=== PATIENT | female | born 1980 | race Caucasian/White ===

== ENCOUNTER 2018-06-28 15:14 | Emergency (ER) | payer BC, SELFPAY ==
[2018-06-28 15:19] VITALS: BP 119/67; PULSE 84; RESP 15; TEMP 36.8; O2SAT 100; BMI 25.7
--- NOTE | 2018-06-28 16:31 | ED.ABDPAIN ---
HPI - Abdominal Pain <Joselyn Cloud PA-C - Last Filed: 06/28/18 22:17> General Chief Complaint: Abdominal Pain Stated Complaint: Severe pelvic pain, weakness Time Seen by Provider: 06/28/18 16:31 Source: patient Mode of arrival: ambulatory Limitations: no limitations History of Present Illness HPI narrative: This 37-year-old female comes in due to recurrent pelvic pain. She states that she had a stabbing pain in her right ovary Ilana morning. This seemed to get better about 6 hr later, talked to her Ob/ statistician his thought probable ovarian cyst that ruptured. She states that she felt okay yesterday, but today has had recurrent pain again that feels like it is in the ovaries but on both sides today. She states that she did feel okay earlier but pain started again when she was up on her feet for about an hour and a half. Pain seems better lying down and resting. She states she has had slight nausea today with reduced appetite but no vomiting. She took 600 mg of ibuprofen this morning which did not seem to help much. She states that she has some pressure in her low back but does have some chronic back pain, and does not think this is especially bothersome. She does not have flank pain. She states she does not feel any pain in her abdomen. She denies any fever, chills, sweats. She denies any new urinary symptoms, vaginal discharge or STD concerns. She states bowel movements have been normal. She denies any chest pain, dyspnea, new swelling in her legs. She states that she felt some fullness in her right thigh area this morning but that has resolved. Currently no lower extremity pain. She denies recent illnesses or other new symptoms on systems review. Related Data Home Medications Medication Instructions Recorded Confirmed ibuprofen [Advil] 1 dose PO PRN PRN 06/28/18 06/28/18 Allergies Allergy/AdvReac Type Severity Reaction Status Date / Time Penicillins [PENICILLINS] Allergy Mild Verified 06/28/18 17:21 Review of Systems <Joselyn Cloud PA-C - Last Filed: 06/28/18 22:17> Review of Systems All systems reviewed & are unremarkable except as noted in HPI and below Exam <Joselyn Cloud PA-C - Last Filed: 06/28/18 22:17> Narrative Exam Narrative: GENERAL APPEARANCE: Patient resting comfortably on her right side HEENT: PERRL, EOMI, no scleral icterus NECK: Supple LUNGS: Clear to auscultation bilaterally. HEART: Rate and rhythm regular, normal S1 and S2, no S3 or S4. ABDOMEN: Soft, nontender, nondistended, bowel sounds present x 4 quadrants, no masses palpable, no hepatosplenomegaly. no CVAT. She has localized tenderness over the left side of the pelvis and suprapubic area, no right-sided tenderness, no guarding or rebound EXTREMITIES: No edema, no calf tenderness DERMATOLOGIC: No jaundice or exanthem NEUROLOGIC: Alert and oriented with normal speech and coordination Initial Vital Signs Initial Vital Signs: Vital Signs Temperature 98.2 F 06/28/18 15:19 Pulse Rate 84 06/28/18 15:19 Respiratory Rate 15 06/28/18 15:19 Blood Pressure 119/67 06/28/18 15:19 Pulse Oximetry 100 06/28/18 15:19 <Darby Lewis DO - Last Filed: 07/01/18 08:08> Initial Vital Signs Initial Vital Signs: Vital Signs Temperature 98.2 F 06/28/18 15:19 Pulse Rate 84 06/28/18 15:19 Respiratory Rate 15 06/28/18 15:19 Blood Pressure 119/67 06/28/18 15:19 Pulse Oximetry 100 06/28/18 15:19 Course <Joselyn Cloud PA-C - Last Filed: 06/28/18 22:17> Additional Information: Patient had moderate pain at the time of discharge which had improved. She did not feel like she needed further treatment or medication. Advised on what to watch for in terms of need to return and also importance of reassessment preferably tomorrow, and she is agreeable. Orders Ordered: Discontinued Medications Sodium Chloride (Normal Saline 0.9%) 1,000 mls @ 1,000 mls/hr IV BOLUS ONE Stop: 06/28/18 17:54 Last Infusion: 06/28/18 19:15 Dose: 0 mls/hr Admin: 06/28/18 17:21 Dose: 1,000 mls/hr Ketorolac Tromethamine (Toradol) 30 mg IV NOW ONE Stop: 06/28/18 16:55 Last Admin: 06/28/18 17:21 Dose: 30 mg Vital Signs - 8 hr 06/28/18 15:19 06/28/18 18:12 Temperature 98.2 F Pulse Rate 84 95 H Respiratory Rate 15 16 Blood Pressure 119/67 Blood Pressure [Left Arm] 105/64 Pulse Oximetry 100 96 <Darby Lewis DO - Last Filed: 07/01/18 08:08> Orders Ordered: Discontinued Medications Sodium Chloride (Normal Saline 0.9%) 1,000 mls @ 1,000 mls/hr IV BOLUS ONE Stop: 06/28/18 17:54 Last Infusion: 06/28/18 19:15 Dose: 0 mls/hr Admin: 06/28/18 17:21 Dose: 1,000 mls/hr Ketorolac Tromethamine (Toradol) 30 mg IV NOW ONE Stop: 06/28/18 16:55 Last Admin: 06/28/18 17:21 Dose: 30 mg Vital Signs - 8 hr 06/28/18 15:19 06/28/18 18:12 Temperature 98.2 F Pulse Rate 84 95 H Respiratory Rate 15 16 Blood Pressure 119/67 Blood Pressure [Left Arm] 105/64 Pulse Oximetry 100 96 MDM - Abdominal Pain <Joselyn Cloud PA-C - Last Filed: 06/28/18 22:17> Lab Data Attestation: I reviewed the patient's lab results. Result diagrams: 06/28/18 17:10 06/28/18 17:10 Lab Results 06/28/18 06/28/18 Range/Units 17:10 17:10 WBC 8.7 (4.5-11.0) X10^3/uL RBC 4.30 (4.0-5.2) X10^6/uL Hgb 13.5 (12.0-16.0) g/dL Hct 39.3 (36-46) % MCV 91.5 (80-100) fL MCH 31.4 (26-34) PG MCHC 34.3 (30-36) % RDW 13.0 (11.6-14.8) % Plt Count 307 (150-400) X10^3/uL Neut % (Auto) 61.1 (50-75) % Lymph % (Auto) 32.6 (25-40) % [place] % (Auto) 5.4 (3-14) % Eos % (Auto) 0.5 L (2-4) % Baso % (Auto) 0.4 (0-2) % Neut # (Auto) 5300 (4937-8680) /uL Sodium 145 (137-145) mmol/L Potassium 3.5 (3.4-5.1) mmol/L Chloride 106 (98-107) mmol/L Carbon Dioxide 27 (22-32) mmol/L BUN 8 (7-17) mg/dL Creatinine 0.70 (0.52-1.04) mg/dL Estimated GFR > 60.0 (>60) mL/min BUN/Creatinine Ratio 11.4 (6-22) Glucose 88 (70-100) mg/dL Calcium 9.6 (8.4-10.2) mg/dL Total Bilirubin 0.4 (0.2-1.3) mg/dL AST 17 (14-36) IU/L ALT 23 (9-52) IU/L Alkaline Phosphatase 44 (38-126) U/L Total Protein 8.3 H (6.3-8.2) g/dL Albumin 4.7 (3.5-5.0) g/dL Globulin 3.6 (1.7-4.1) g/dL Albumin/Globulin Ratio 1.3 (1.0-2.8) Point of care testing: Point of Care Testing Test Results Negative Urine Dip Bedside Urine Glucose Negative Bedside Urine Bilirubin - Negative Bedside Urine Ketone - Negative Urine Specific [place] 1.010 Bedside Urine Occult Blood - Negative Bedside Urine pH 6.5 Bedside Urine Protein - Negative Bedside Urine Urobilinogen - Negative Bedside Urine Nitrite - Negative Bedside Urine Leukocytes - Negative Esterase Imaging Data pelvis: Radiologist's impression: [place] [address] Ultrasound Report Signed Patient: Tiffany Colbert CMR#: [id number] : 1980Acct:[id number] Age/Sex: 37 / FDate of Service: 06/28/18 Loc: ED Accession Number: [id number] Procedure: US pelvic complete Ordering Provider: Joselyn Cloud P.A-C PROCEDURE: US PELVIC COMPLETE INDICATIONS: pelvic/adenexal pain TECHNIQUE: Real-time scanning was performed of the pelvic organs, with image documentation. Additional endovaginal scanning was necessary due to incomplete visualization of the adnexal and endometrial structures by transabdominal scanning. COMPARISON: None. FINDINGS: Transabdominal scanning: Limited scanning through the kidneys shows no hydronephrosis. No pathologic free abdominal or pelvic fluid. Endovaginal scanning: Uterus: Uterus is normal in size at 7.5 x 4.6 x 5.9 cm. The endometrium measures 5.0 mm in combined thickness. Ovaries: Right adnexa measures 2.7 x 2.7 x 3.3 cm. Left adnexa measures 2.7 x 2.1 x 2.0 cm. Adnexa sonographically normal. IMPRESSION: 1. Uterus sonographically normal. 2. Adnexa sonographically normal. Dictated by: Kathleen Palmer MD, PhD on 06/28/2018 at 18:30 Approved by: Kathleen Palmer MD, PhD on 06/28/2018 at 18:31 <Darby Lewis, - Last Filed: 07/01/18 08:08> Lab Data Lab Results 06/28/18 06/28/18 Range/Units 17:10 17:10 WBC 8.7 (4.5-11.0) X10^3/uL RBC 4.30 (4.0-5.2) X10^6/uL Hgb 13.5 (12.0-16.0) g/dL Hct 39.3 (36-46) % MCV 91.5 (80-100) fL MCH 31.4 (26-34) PG MCHC 34.3 (30-36) % RDW 13.0 (11.6-14.8) % Plt Count 307 (150-400) X10^3/uL Neut % (Auto) 61.1 (50-75) % Lymph % (Auto) 32.6 (25-40) % [place] % (Auto) 5.4 (3-14) % Eos % (Auto) 0.5 L (2-4) % Baso % (Auto) 0.4 (0-2) % Neut # (Auto) 5300 (1235-6415) /uL Sodium 145 (137-145) mmol/L Potassium 3.5 (3.4-5.1) mmol/L Chloride 106 (98-107) mmol/L Carbon Dioxide 27 (22-32) mmol/L BUN 8 (7-17) mg/dL Creatinine 0.70 (0.52-1.04) mg/dL Estimated GFR > 60.0 (>60) mL/min BUN/Creatinine Ratio 11.4 (6-22) Glucose 88 (70-100) mg/dL Calcium 9.6 (8.4-10.2) mg/dL Total Bilirubin 0.4 (0.2-1.3) mg/dL AST 17 (14-36) IU/L ALT 23 (9-52) IU/L Alkaline Phosphatase 44 (38-126) U/L Total Protein 8.3 H (6.3-8.2) g/dL Albumin 4.7 (3.5-5.0) g/dL Globulin 3.6 (1.7-4.1) g/dL Albumin/Globulin Ratio 1.3 (1.0-2.8) Point of care testing: Point of Care Testing Test Results Negative Urine Dip Bedside Urine Glucose Negative Bedside Urine Bilirubin - Negative Bedside Urine Ketone - Negative Urine Specific [place] 1.010 Bedside Urine Occult Blood - Negative Bedside Urine pH 6.5 Bedside Urine Protein - Negative Bedside Urine Urobilinogen - Negative Bedside Urine Nitrite - Negative Bedside Urine Leukocytes - Negative Esterase Discharge Plan Departure Patient Disposition: Home Clinical Impression: Pelvic pain Discharge Date/Time: 06/28/18 19:21 Interventions: ED Discharge Assessment Last Done: 06/28/18 19:18 Instructions: DI for Pelvic Pain Activity Restrictions/Additional Instructions: please return as we talked about if you have acutely worsening pain again, or new symptoms such as fever or vomiting. Otherwise, please call [facility] 1st thing in the morning and let them know you were seen in the emergency room so that you can arrange follow-up tomorrow as we like to do serial exams for this type of pain. you may need further testing. As we talked about, the pain could come from another source such as the abdomen or your back. Please rest tonight. Take your 800 mg of ibuprofen every 8 hr, and add Tylenol as needed. Prescriptions: No Action ibuprofen [Advil] 200 mg Tablet 1 dose PO PRN PRN (Reason: pain) RF: 0 Referrals: Lady Esquivel MD [Physician] - Ashley Lim DO [Primary Care Provider] - <Darby Lewis DO - Last Filed: 07/01/18 08:08> Cosign ED Attending Niruature Attestation: I was immediately available in the department for consultation. Documentation has been reviewed. I agree with assessment and plan.
--- NOTE | 2018-06-28 16:54 | DI.US.S_ITS ---
PROCEDURE: US PELVIC COMPLETE INDICATIONS: pelvic/adenexal pain TECHNIQUE: Real-time scanning was performed of the pelvic organs, with image documentation. Additional endovaginal scanning was necessary due to incomplete visualization of the adnexal and endometrial structures by transabdominal scanning. COMPARISON: None. FINDINGS: Transabdominal scanning: Limited scanning through the kidneys shows no hydronephrosis. No pathologic free abdominal or pelvic fluid. Endovaginal scanning: Uterus: Uterus is normal in size at 7.5 x 4.6 x 5.9 cm. The endometrium measures 5.0 mm in combined thickness. Ovaries: Right adnexa measures 2.7 x 2.7 x 3.3 cm. Left adnexa measures 2.7 x 2.1 x 2.0 cm. Adnexa sonographically normal. IMPRESSION: 1. Uterus sonographically normal. 2. Adnexa sonographically normal. Dictated by: Kathleen Palmer MD, PhD on 06/28/2018 at 18:30 Approved by: Kathleen Palmer MD, PhD on 06/28/2018 at 18:31
--- NOTE | 2018-06-28 17:16 | PC.NURSE ---
reports, bilateral lower abdominal pain, (ovary) onset monday at 530pm, with lumbar preassure, denies fever, chills, with nausea , no emesis, no diarrhea, had bm today, 1pm also reported started vaginal bleeding today.
[2018-06-28] MEDS: SODIUM CHLORIDE 0.9% 1,000 ML 1000 ML IV (17:21)
[2018-06-28] MEDS: KETOROLAC 60 MG/2 ML VIAL 30 MG IV (17:21)
[2018-06-28 17:44] LABS: Add Manual Diff / Slide Review NO; Basophils Percent Auto 0.4 % (0-2); Eosinophils Percent Auto 0.5 % (2-4); Hematocrit 39.3 % (36-46); Hemoglobin 13.5 g/dL (12.0-16.0); Lymphocytes Percent Auto 32.6 % (25-40); Mean Corpuscular HGB Conc 34.3 % (30-36); Mean Corpuscular Hemoglobin 31.4 PG (26-34); Mean Corpuscular Volume 91.5 fL (80-100); Monocytes Percent Auto 5.4 % (3-14); Neutrophils Absolute Auto 5300 /uL (3000-5900); Neutrophils Percent Auto 61.1 % (50-75); Platelet Count 307 X10^3/uL (150-400); White Blood Cell Count 8.7 X10^3/uL (4.5-11.0)
[2018-06-28 18:00] LABS: Alanine Aminotransferase 23 IU/L (9-52); Albumin 4.7 g/dL (3.5-5.0); Albumin Globulin Ratio 1.3 (1.0-2.8); Alkaline Phosphatase 44 U/L (38-126); Aspartate Aminotransferase 17 IU/L (14-36); BUN Creatinine Ratio 11.4 (6-22); Bilirubin Total 0.4 mg/dL (0.2-1.3); Blood Urea Nitrogen 8 mg/dL (7-17); Calcium 9.6 mg/dL (8.4-10.2); Carbon Dioxide 27 mmol/L (22-32); Chloride 106 mmol/L (98-107); Estimated Glomerular Filt Rate > 60.0 mL/min (>60); Globulin 3.6 g/dL (1.7-4.1); Glucose 88 mg/dL (70-100); HEMOLYSIS < 15 (0-50); Potassium 3.5 mmol/L (3.4-5.1); Sodium 145 mmol/L (137-145); Total Protein 8.3 g/dL (6.3-8.2)
[2018-06-28 18:12] VITALS: BP 105/64; PULSE 95; RESP 16; O2SAT 96
--- NOTE | 2018-06-28 18:12 | PC.NURSE ---
pts pain intermittent.
== END 2018-06-28 19:21 | disposition home or self-care (01) ==
PROVIDERS: Emergency Provider Internal Medicine; Family Provider Family Medicine; PCP Family Medicine
DX: R10.2 Pelvic and perineal pain (principal)
CPT/HCPCS: 36591; 76856; 80053; 81003; 81025; 85025; 96361; 96374; 99283; 99284; J1885

== ENCOUNTER 2018-08-21 09:47 | Outpatient (CLI) | payer BC, SELFPAY ==
[2018-08-21] VITALS (7 sets, daily range): BP systolic 107–128; BP diastolic 58–82; PULSE 76–88; RESP 16–17; TEMP 36.6; O2SAT 98–100
--- NOTE | 2018-08-21 09:51 | DI.RAD.S_ITS ---
PROCEDURE: PAIN L/SI FACET INJ/BLK 1STL INDICATIONS: SPONDYLOSIS FINDINGS: Fluoroscopic spot filming was performed to verify placement of spinal needles at the L4, L5 and S1 level(s), as labeled on the films. Appropriate location(s) of the needle tip(s) was confirmed by injection of iodinated contrast. IMPRESSION: Fluoroscopy for pain management. Dictated by: Josi Marmolejo M.D. on 08/21/2018 at 12:04 Approved by: Josi Marmolejo M.D. on 08/21/2018 at 12:05
--- NOTE | 2018-08-21 10:21 | PM.PROC.1 ---
Procedures Date/Time Date of procedure: 08/21/18 Time of procedure: 10:21 General Procedure description: Procedure description: 1. FACET ARTHROPATHY PROCEDURES: 1. BILATERAL- L4, L5 and S1 MB BLOCKS PHYSICIAN: DO JORGE Nieto Tiffany is referred by for treatment of Bilateral Axial LBP. DESCRIPTION OF PROCEDURE Fluoroscopically guided, contrast-controlled bilateral L4, L5 and S1 medial branch blocks with 0.5cc of 0.5% Marcaine. Following denial of allergy and review of potential side effects and complications, including, but not necessarily limited to, infection, allergic reaction, local tissue breakdown, nerve injury, paralysis, stroke and possible , the patient indicated that the patient understood and agreed to proceed. An informed consent document was signed by the patient, witnessed by a nurse, and placed in the patient's chart. After review of previous anaesthesic history and IV conscious sedation the patient was deemed safe to proceed with todays procedure with IV conscious sedation as ASA class II designation. Safety time-out was performed to confirm patient ID, procedure to be performed and site of procedure. IV sedation was accomplished with a combination of 3mg of Versed and 50mcg of Fentanyl was administered by the RN after DO order, titrated to patient comfort during the course of the procedure while the patient remained responsive to all verbal commands In the prone position, following sterile prep and drape of the lumbar region, the right L4, L5 and S1 anatomical location of the medial branch of the dorsal ramus was identified fluoroscopically. Subsequently an anesthetic skin wheal using 1% lidocaine solution was initiated at each of the anatomical spots. Subsequently then a 22-gauge 3.5-inch spinal needle was atraumatically introduced and advanced under fluoroscopic guidance at each of the corresponding sites at the right L4, L5 and S1 MB. After negative aspiration, 0.2 cc of Isovue 200 was injected, confirming placement without vascular or intrathecal uptake. Subsequently then 0.5 cc of 0.5% Marcaine solution was injected at each of the corresponding sites at the right L4, L5 and S1 medial branch locations. The identical procedure was replicated on the left. The patient tolerated the procedure well without signs or symptoms of complications prior to transfer to the recovery area continued monitoring without incident. Post-procedure, the patient was monitored initiating provocative activities to measure the amount of relief from block of the facetogenic pain. The patient reported a VAS of 7 prior to the procedure and a post-procedure VAS of 1. It has been a pleasure to assist in the diagnostic and therapeutic care of your patient. Total Fluoroscopy Time: 24.8 seconds Total Conscious Sedation Time: 24min POST OP INSTRUCTIONS The patient was provided with a Pain Log to complete over the next several hours and subsequent days prior to the patient's follow up with the ordering physician. If the patient has senior manufacturing technician relief to the solution applied, then they may be a candidate for medial branch rhizotomy. The patient is aware, was provided, once again, with a Pain Log and will follow up with the referring physician for review and clinical correlation Phong Jacobson DO Complications: none
[2018-08-21] MEDS: MIDAZOLAM 5 MG/5 ML VIAL IV (10:25)
[2018-08-21] MEDS: BUPIVACAINE 0.5% (PF) VIAL 2 ML INJ (10:36)
[2018-08-21] MEDS: BETAMETHASONE 30 MG/5 ML MDV 12 MG INJ (10:36)
[2018-08-21] MEDS: IOPAMIDOL 15 ML VIAL 3 ML INJ (10:36)
[2018-08-21] MEDS: LIDOCAINE 1% 20 ML INJ 10 ML INJ (10:37)
--- NOTE | 2018-08-21 10:48 | PC.NURSE ---
ACCEPTED CARE OF PT IN POST PROC AREA IN STABLE CONDITION FROM JODI MYERS
--- NOTE | 2018-08-21 10:52 | PC.NURSE ---
Pt tolerated procedure, she is awake and alert able to get off table with standby assist. Transferred to pre procedure room via w/c for continued monitoring by Nicolasa ZAPATA.
[2018-08-21] MEDS: fentaNYL 100 MCG/2 ML INJ 50 MCG IV (10:55)
--- NOTE | 2018-08-22 15:59 | PC.NURSE ---
FOLLOW UP CALL MADE, PT STATES SHE IS SLIGHTLY SORE BUT HAS DECREASED PAIN COMPARED TO BEFORE PROCEDURE. PT DENIES QUESTIONS/CONCERNS.
== END 2018-08-21 11:06 | disposition home or self-care (01) ==
LOC: RAD 09:50
PROVIDERS: Family Provider Family Medicine; PCP Family Medicine; Visit Provider Physical Medicine & Rehabilitation
DX: M47.817 Spondylosis without myelopathy or radiculopathy, lumbosacral region (principal)
CPT/HCPCS: 64493; 64494; 99152; J0702; J2250; J3010